=== PATIENT | female | born 1985 | race Caucasian/White ===

== ENCOUNTER 2018-06-25 16:08 | Outpatient (CLI) | payer MEDICAID ==
[2018-06-25 17:38] LABS: ADD UMIC NO; UR ASCORBIC ACID NEGATIVE (NEGATIVE); UR BILIRUBIN (Dip) NEGATIVE (NEGATIVE); UR BLOOD (Dip) NEGATIVE (NEGATIVE); UR CLARITY CLEAR (CLEAR); UR COLOR YELLOW (YELLOW); UR GLUCOSE (Dip) NEGATIVE (NEGATIVE); UR KETONES (Dip) 1+ mg/dL (NEGATIVE); UR LEUKOCYTE ESTERASE (Dip) NEGATIVE Leu/ul (NEGATIVE); UR NITRITE (Dip) NEGATIVE (NEGATIVE); UR SPECIFIC GRAVITY (Dip) 1.021 (1.003-1.030); UR TOTAL PROTEIN (Dip) NEGATIVE (NEGATIVE); UR UROBILINOGEN (Dip) NEGATIVE (NEGATIVE)
[2018-06-25] MEDS: LACTATED RINGER'S 1,000 ML IV* (17:50)
== END 2018-06-25 19:23 | disposition home or self-care (01) ==
LOC: OBT 16:08 → L-D 16:10 → OBT 19:23
DX: O62.9 Abnormality of forces of labor, unspecified (principal); O24.414 Gestational diabetes mellitus in pregnancy, insulin controlled; Z3A.34 34 weeks gestation of pregnancy
CPT/HCPCS: 36415; 81003; 96360; 96361

== ENCOUNTER 2018-07-14 12:58 | Inpatient (IN) | payer MEDICAID ==
[~2018-07-14 12:58] MED LIST: METOCLOPRAMIDE 10 MG INJ
[2018-07-14 16:50] LABS: ADD MAN DIFF? NO
[2018-07-14 16:52] LABS: WHITE BLOOD COUNT 7.4 10^3/ul (4.8-10.8)
[2018-07-14 16:52] LABS: BASOPHILS % 0.1 % (0.0-2.0); EOSINOPHILS % 0.5 % (0.0-7.0); HEMATOCRIT 36.4 % (37.0-47.0); HEMOGLOBIN 12.6 g/dl (12.0-16.0); LYMPHOCYTES # 1.7 10^3/ul (0.8-2.9); LYMPHOCYTES % 22.4 % (15.0-51.0); MEAN CORPUSCULAR HEMOGLOBIN 31.3 pg (29.0-33.0); MEAN CORPUSCULAR HGB CONC 34.6 g/dl (32.0-37.0); MEAN CORPUSCULAR VOLUME 90.5 fl (82.0-101.0); MONOCYTE # 0.4 10^3/ul (0.3-0.9); MONOCYTES % 5.9 % (0.0-11.0); NEUTROPHIL # 5.2 10^3/ul (1.6-7.5); NEUTROPHILS % 70.6 % (39.0-77.0); PLATELET COUNT 210 10^3/UL (140-415); RED BLOOD COUNT 4.02 10^6/ul (4.20-5.40); RED CELL DISTRIBUTION WIDTH 12.7 % (11.5-14.5)
[2018-07-14 16:56] LABS: INR 0.86; PROTIME 11.8 Sec (11.9-14.9); PT RATIO 0.9
[2018-07-14 16:57] LABS: PARTIAL THROMBOPLASTIN TIME 29.6 Sec (23.0-35.0)
[2018-07-14] MEDS ORDERED: METHYLERGONOVINE 0.2 MG INJ IM ×2 (17:00→22:30)
[2018-07-14] MEDS ORDERED: CARBOPROST 250 MCG INJ IM ×2 (17:00→22:30)
[2018-07-14] MEDS ORDERED: OXYTOCIN 30 UNITS/LR 500 ML IV ×2 (17:00→22:30)
[2018-07-14] MEDS ORDERED: MISOPROSTOL 200 MCG TAB PR ×2 (17:00→22:30)
[2018-07-14] MEDS ORDERED: CEFAZOLIN 2 GM/50 ML (PMX) 50 ML IVPB (17:00)
[2018-07-14] MEDS: LACTATED RINGER'S 1,000 ML IV ×3 (17:33→22:21)
[2018-07-14 17:38] LABS: HIV 1&2 ANTIBODY NEGATIVE (NEGATIVE)
[2018-07-14 18:20] LABS: HEPATITIS B SURFACE ANTIGEN NEGATIVE (NEGATIVE)
[2018-07-14 20:15] LABS: ALANINE AMINOTRANSFERASE 7 IU/L (13-69); ALBUMIN 3.8 g/dl (3.3-4.9); ALBUMIN/GLOBULIN RATIO 0.97; ALKALINE PHOSPHATASE 96 IU/L (42-121); ANION GAP 8 (5-13); ASPARTATE AMINO TRANSFERASE 20 IU/L (15-46); BILIRUBIN,INDIRECT 0.4 mg/dl (0-1.1); BILIRUBIN,TOTAL 0.4 mg/dl (0.2-1.3); BLOOD UREA NITROGEN 12 mg/dl (7-20); CALCIUM 9.7 mg/dl (8.4-10.2); CARBON DIOXIDE 19 mmol/L (21-31); CHLORIDE 106 mmol/L (97-110); Estimated GFR > 60 mL/min (>60); GLUCOSE 103 mg/dl (70-220); POTASSIUM 4.3 mmol/L (3.5-5.1); SODIUM 133 mmol/L (135-144); TOTAL PROTEIN 7.7 g/dl (6.1-8.1)
[2018-07-14] MEDS ORDERED: BUPIVACAINE 0.75%/DEXT (SPINAL) 2 ML INJ (20:26)
[2018-07-14] MEDS ORDERED: morphine SULFATE/PF (10 MG/10 ML) INJ (20:26)
[2018-07-14] MEDS ORDERED: ONDANSETRON 4 MG INJ ×2 (20:36→21:08)
[2018-07-14] MEDS ORDERED: EPHEDrine 25 MG/5 ML SYG (20:56)
[2018-07-14] MEDS ORDERED: OXYTOCIN 10 UNIT INJ ×2 (21:08→22:01)
[2018-07-14] MEDS ORDERED: MIDAZOLAM 1 MG/ML 2 ML INJ (21:34)
[2018-07-14] MEDS ORDERED: MEPERIDINE 25 MG INJ IV (22:00)
[2018-07-14] MEDS ORDERED: NALOXONE (0.4 MG/ML) INJ IV (22:00)
[2018-07-14] MEDS ORDERED: ZOLPIDEM 5 MG TAB PO (22:00)
[2018-07-14] MEDS ORDERED: NALBUPHINE HCL (10 MG/1 ML) INJ IV (22:00)
[2018-07-14] MEDS ORDERED: DIPHENHYDRAMINE 50 MG INJ IV ×2 (22:00)
[2018-07-14] MEDS ORDERED: HYDROmorphONE 0.5 MG/0.5 ML SYG IV ×2 (22:00)
[2018-07-14] MEDS ORDERED: ONDANSETRON 4 MG INJ IV ×2 (22:00→22:30)
[2018-07-14] MEDS ORDERED: MIDAZOLAM 1 MG/ML 2 ML INJ IV (22:00)
[2018-07-14] MEDS ORDERED: LANOLIN HPA 1 PKT TOP (22:30)
[2018-07-14] MEDS ORDERED: ACETAMINOPHEN 325 MG TAB PO (22:30)
[2018-07-14] MEDS ORDERED: MAGNESIUM HYDROXIDE 30ML CUP PO (22:30)
[2018-07-14] MEDS ORDERED: BISACODYL 10 MG SUPP PR (22:30)
[2018-07-14] MEDS ORDERED: SENNA/DOCUSATE NA (8.6MG/50MG) TAB PO (22:30)
[2018-07-14] MEDS: OXYTOCIN 30 UNITS/LR 500 ML IV (23:26)
[2018-07-15] MEDS: CEFAZOLIN 1 GM/50 ML (PMX) 50 ML IVPB ×3 (02:07→17:49)
[2018-07-15] MEDS: LACTATED RINGER'S 1,000 ML IV ×2 (07:20→17:49)
[2018-07-15] MEDS: OXYTOCIN 30 UNITS/LR 500 ML IV (07:27)
[2018-07-15] MEDS ORDERED: INSULIN LISPRO PROT/LISP (75/25) 3ML KWIKPEN SC (07:30)
[2018-07-15 08:05] LABS: ADD MAN DIFF? NO
[2018-07-15 08:10] LABS: BASOPHILS % 0.1 % (0.0-2.0); EOSINOPHILS % 0.3 % (0.0-7.0); HEMATOCRIT 30.8 % (37.0-47.0); HEMOGLOBIN 10.5 g/dl (12.0-16.0); LYMPHOCYTES # 1.2 10^3/ul (0.8-2.9); LYMPHOCYTES % 15.1 % (15.0-51.0); MEAN CORPUSCULAR HEMOGLOBIN 31.3 pg (29.0-33.0); MEAN CORPUSCULAR HGB CONC 34.1 g/dl (32.0-37.0); MEAN CORPUSCULAR VOLUME 91.7 fl (82.0-101.0); MEAN PLATELET VOLUME 12.6 fl (7.4-10.4); MONOCYTE # 0.5 10^3/ul (0.3-0.9); MONOCYTES % 6.1 % (0.0-11.0); NEUTROPHIL # 6.1 10^3/ul (1.6-7.5); NEUTROPHILS % 78.1 % (39.0-77.0); PLATELET COUNT 168 10^3/UL (140-415); RED BLOOD COUNT 3.36 10^6/ul (4.20-5.40); RED CELL DISTRIBUTION WIDTH 12.6 % (11.5-14.5)
[2018-07-15 08:10] LABS: WHITE BLOOD COUNT 7.8 10^3/ul (4.8-10.8)
[2018-07-15] MEDS: ACCU-CHEK XX ×4 (08:31→20:10)
[2018-07-15 08:36] LABS: ALANINE AMINOTRANSFERASE 8 IU/L (13-69); ALKALINE PHOSPHATASE 69 IU/L (42-121); ANION GAP 5 (5-13); ASPARTATE AMINO TRANSFERASE 17 IU/L (15-46); BILIRUBIN,INDIRECT 0.6 mg/dl (0-1.1); BILIRUBIN,TOTAL 0.6 mg/dl (0.2-1.3); BLOOD UREA NITROGEN 12 mg/dl (7-20); CARBON DIOXIDE 23 mmol/L (21-31); CHLORIDE 106 mmol/L (97-110); CREATININE 0.36 mg/dl (0.44-1.00); Estimated GFR > 60 mL/min (>60); GLUCOSE 131 mg/dl (70-220); POTASSIUM 4.4 mmol/L (3.5-5.1); SODIUM 134 mmol/L (135-144); TOTAL PROTEIN 6.3 g/dl (6.1-8.1)
[2018-07-15] MEDS: ENOXAPARIN 40 MG/0.4 ML SYG SC (10:18)
[2018-07-15] MEDS ORDERED: NPH, HUMAN INSULIN ISOPHANE 3ML VIAL SC ×3 (11:00→21:00)
[2018-07-15] MEDS ORDERED: DEXTROSE 50% 50 ML SYRINGE IV ×2 (13:00)
[2018-07-15] MEDS ORDERED: GLUCOSE GEL 15 GRAM TUBE PO ×2 (13:00)
[2018-07-15] MEDS ORDERED: GLUCOSE GEL 15 GRAM TUBE BUCCAL (13:00)
[2018-07-15] MEDS ORDERED: GLUCAGON 1 MG INJ IM (13:00)
[2018-07-15 15:09] LABS: RAPID PLASMA REAGIN NONREACTIVE (NR)
[2018-07-15] MEDS: KETOROLAC 30 MG INJ IV ×2 (16:18)
[2018-07-15] MEDS: OXYCODONE/ACETAMINOPHEN (5/325) TAB PO (23:32)
[2018-07-16] MEDS: OXYCODONE/ACETAMINOPHEN (5/325) TAB PO ×4 (04:13→21:54)
[2018-07-16] MEDS: ACCU-CHEK XX ×4 (08:20→21:59)
[2018-07-16] MEDS: ENOXAPARIN 40 MG/0.4 ML SYG SC (09:24)
[2018-07-16 16:20] LABS: HEMOGLOBIN A1C 5.7 % (0-5.9)
[2018-07-16] MEDS: IBUPROFEN 600 MG TAB PO (17:54)
[2018-07-16] MEDS: metFORMIN 500 MG TAB PO (17:57)
[2018-07-17] MEDS: OXYCODONE/ACETAMINOPHEN (5/325) TAB PO ×3 (02:40→15:36)
[2018-07-17] MEDS: ACCU-CHEK XX ×3 (07:30→15:25)
[2018-07-17] MEDS: ENOXAPARIN 40 MG/0.4 ML SYG SC (09:51)
[2018-07-17] MEDS: IBUPROFEN 600 MG TAB PO (11:37)
[2018-07-17 12:27] LABS: RUBELLA ANTIBODY - IGG 1.38 index; RUBELLA ANTIBODY - IGM <20.00 AU/mL
[2018-07-17] MEDS: metFORMIN 500 MG TAB PO (17:49)
== END 2018-07-17 19:09 | disposition home or self-care (01) | DRG 786 ==
LOC: OBT 12:58 → PP1 07-15 00:57 → L-D 12:58 → OBT 15:05 → L-D 15:05
PROVIDERS: Obstetrics & Gynecology
PROC: 10D00Z1 Extraction of Products of Conception, Low, Open Approach (ICD-10-PCS; principal; 2018-07-14)
DX: O76 Abnormality in fetal heart rate and rhythm complicating labor and delivery (principal); O24.12 Pre-existing type 2 diabetes mellitus, in childbirth; O36.8130 Decreased fetal movements, third trimester, not applicable or unspecified; E11.9 Type 2 diabetes mellitus without complications; O36.63X0 Maternal care for excessive fetal growth, third trimester, not applicable or unspecified; O99.214 Obesity complicating childbirth; E66.9 Obesity, unspecified; Z3A.37 37 weeks gestation of pregnancy; Z37.0 Single live birth; Z79.4 Long term (current) use of insulin
CPT/HCPCS: 76816; 76818; 80053; 82962; 83036; 85025; 85610; 85730; 86592; 86703; 86762; 86850; 86900; 86901; 87340; 99464